=== PATIENT | female | born 1990 | race Caucasian/White ===

== ENCOUNTER 2021-07-28 20:04 | Emergency (ER) | payer OTHER ==
[2021-07-28 20:17] VITALS: BMI 37.8
[2021-07-28] MEDS ORDERED: ACETAMINOPHEN 500 MG TABLET (FP) PO ONE (20:48)
[2021-07-28] MEDS ORDERED: SODIUM CHLORIDE 0.9% 500 ML INFUS.BAG IV ONE (22:55)
[2021-07-29 01:02] VITALS: BP 110/76; PULSE 85; TEMP 98.7
== END 2021-07-29 01:02 | disposition home or self-care (01) ==
LOC: JER 20:04
DX: B34.9 Viral infection, unspecified (principal)
CPT/HCPCS: 87804; 93005; 93010; 99284-25; C9803; U0003; U0005